=== PATIENT | male | born 1960 | race American Indian/Alaskan Native ===

== ENCOUNTER 2018-08-23 22:04 | Inpatient (IN) | payer MEDICARE ==
[2018-08-23] MEDS ORDERED: NACL 0.9% 1000 ML 1,000 ML IV ONE (22:28)
--- NOTE | 2018-08-23 22:28 | Emergency Department Report ---
Blank Doc - Documentation Documentation: Abd pain was seen Tuesday given Rx for pain medication but can't get it filled 2nd to pharmacy has to order. Hx/o pancreatitis. Nausea and vomiting. Hx/o Htn, OK, COPD, Pancreatitis. This initial assessment diagnostic orders/clinical plan/treatment (s) is/Are subject change based on patient's health status, clinical progression and re- assessment by fellow clinical providers in the ED. Further treatment and work-up at subsequent clinical providers discretion. Patient/guardians urged not to elope from s their condition may be serious if not clinically assessed and managed. Initial order include:
[2018-08-23] MEDS ORDERED: TYLENOL ONE (22:29)
[2018-08-23 22:57] LABS: Basophils % (Auto) 0.4 % (0.0-1.8); Eosinophils # (Auto) 0.1 K/mm3 (0.0-0.4); Eosinophils % (Auto) 1.4 % (0.0-4.3); Hematocrit 32.3 % (35.5-45.6); Hemoglobin 10.5 gm/dl (11.8-15.2); Lymphocytes # (Auto) 1.2 K/mm3 (1.2-5.4); Lymphocytes % (Auto) 17.8 % (13.4-35.0); Mean Corpuscular HGB Conc 33 % (32-34); Mean Corpuscular Volume 98 fl (84-94); Monocytes # (Auto) 0.5 K/mm3 (0.0-0.8); Monocytes % (Auto) 7.5 % (0.0-7.3); Platelet Count 235 K/mm3 (140-440); Red Blood Count 3.29 M/mm3 (3.65-5.03); Red Cell Distribution Width 15.7 % (13.2-15.2)
[2018-08-23] MEDS ORDERED: TYLENOL PO ONE (23:00)
[2018-08-23 23:24] LABS: Albumin 4.3 g/dL (3.9-5); Calcium 8.9 mg/dL (8.4-10.2)
--- NOTE | 2018-08-24 00:53 | Cat Scan Report ---
FINAL REPORT PROCEDURE: CT ABDOMEN PELVIS WO CON TECHNIQUE: Computerized axial tomography of the abdomen and pelvis was performed without intravenous contrast. This study is performed without intravascular contrast material and its sensitivity for ab dominal and pelvic pathology, including neoplasms, inflammation, abscess, free fluid, thrombosis, art erial dissection and infarction, is reduced compared with a contrast enhanced study. HISTORY: abd pain nausea COMPARISON: No prior studies are available for comparison. FINDINGS: Visualized lower thorax: No significant abnormality. Liver: Normal size and attenuation. Spleen: Normal size and attenuation. Gallbladder and biliary system: Normal. Pancreas: There is some streaking of the peripancreatic fat mid pancreas region. There is evidence in creased size in the mid pancreatic body with this region measuring 3.7 centimeters. No definitive mas s seen on this study. The findings could be related to inflammatory change. This area is not fully ev aluated on this study. Evaluation of the pancreas utilizing contrast enhanced CT in multiple phases w ould be appropriate.. Adrenals: Normal. Kidneys: Both kidneys are atrophic. No hydronephrosis. No renal stones or masses.. GI tract: The stomach is normal. The small bowel has a normal caliber without obstruction. The cecum, appendix and colon are normal. Mild diverticular change in the distal colon. No inflammatory process in this region.. Lymph nodes and mesentery: Normal. Vasculature: Moderate atherosclerosis of the aorta and all branching vessels. Bladder: Normal. Reproductive organs: Normal. Peritoneum: No free fluid. Musculoskeletal structures: No significant abnormality. Other: Small fat containing umbilical hernia. IMPRESSION: There is an increased size of mid pancreatic body measuring up to 3.7 centimeters. No definitive mass es seen on this study. There is some streaking of the peripancreatic fat. The findings may indicate a n acute inflammatory change such as pancreatitis. A mass in the mid pancreas body is not excluded on the basis of this study. Further evaluation of the pancreas using contrast enhanced CT in multiple ph ases would be appropriate. There is no evidence of intestinal or urinary tract obstruction. The appendix is normal. Moderate div erticulosis of distal colon..
[2018-08-24] MEDS ORDERED: ZOFRAN IV ONE (01:03)
[2018-08-24] MEDS ORDERED: SUBLIMAZE IV ONE (01:03)
--- NOTE | 2018-08-24 01:08 | Emergency Department Report ---
HPI - General Chief Complaint: Abdominal Pain Time Seen by Provider: 08/23/18 22:22 - HPI HPI: Room 5 The patient is a 57-year-old male presenting with a chief complaint of abdominal pain. Patient states one week she's had intermittent left lower quadrant abdominal pain associated with nausea vomiting. Patient states earlier in the week he was diagnosed with pancreatitis at the [place] ED for discharge home. Patient states he continues to have the pain and gives score of 9/10. Patient denies history of fever. Patient denies diarrhea Location: Abdomen Duration: [See above] Quality: Pain Severity: 9/10 Modifying factors: [see above] Context: [see above] Mode of transportation: [not driving] ED Past Medical Hx - Past Medical History Hx Hypertension: Yes Hx Heart Attack/AMI: Yes Hx Congestive Heart Failure: Yes Additional medical history: Pancreatitis - Surgical History Hx Coronary Stent: Yes - Family History Family history: no significant - Social History Smoking Status: Current Every Day Smoker (1/3 pack per day) Substance Use Type: None (denies illicit drug use), Alcohol (stopped drinking alcohol 5 days ago) ED Review of Systems ROS: Stated complaint: ABD PAIN Other details as noted in HPI Constitutional: denies: fever Eyes: denies: eye pain ENT: denies: throat pain Respiratory: no symptoms reported Cardiovascular: denies: chest pain Endocrine: no symptoms reported Gastrointestinal: abdominal pain, nausea, vomiting. denies: diarrhea Genitourinary: denies: testicular pain Musculoskeletal: denies: back pain Neurological: denies: headache Physical Exam - Physical Exam Vital Signs: Vital Signs 08/23/18 22:22 Temperature 98.4 F Pulse Rate 88 Respiratory 20 Rate Blood Pressure 147/102 O2 Sat by Pulse 99 Oximetry Physical Exam: GENERAL: The patient is well-developed well-nourished male on a stretcher appearing to be in mild discomfort. [] HEENT: Normocephalic. Atraumatic. Extraocular motions are intact. Patient has moist mucous membranes. NECK: Supple. Trachea midline CHEST/LUNGS: Clear to auscultation. There is no respiratory distress noted. HEART/CARDIOVASCULAR: Regular. There is no tachycardia. There is no gallop rub or murmur. ABDOMEN: Abdomen is soft, with discomfort to palpation in the left upper quadrant and left lower quadrant. Patient has normal bowel sounds. There is no abdominal distention. SKIN: There is no rash. There is no edema. There is no diaphoresis. NEURO: The patient is awake, alert, and oriented. The patient is cooperative. The patient has normal speech MUSCULOSKELETAL: There is no evidence of acute injury. ED Course Vital Signs 08/23/18 22:22 Temperature 98.4 F Pulse Rate 88 Respiratory 20 Rate Blood Pressure 147/102 O2 Sat by Pulse 99 Oximetry ED Medical Decision Making - Lab Data Result diagrams: 08/23/18 22:36 08/23/18 22:36 Laboratory Tests 08/23/18 08/23/18 22:36 22:36 WBC 7.0 RBC 3.29 L Hgb 10.5 L Hct 32.3 L MCV 98 H MCH 32 MCHC 33 RDW 15.7 H Plt Count 235 Lymph % (Auto) 17.8 [place] % (Auto) 7.5 H Eos % (Auto) 1.4 Baso % (Auto) 0.4 Lymph # 1.2 [place] # 0.5 Eos # 0.1 Baso # 0.0 Seg Neutrophils % 72.9 H Seg Neutrophils # 5.1 Sodium 137 Potassium 4.2 Chloride 92.5 L Carbon Dioxide 22 Anion Gap 27 BUN 50 H Creatinine 12.3 H Estimated GFR 4 BUN/Creatinine Ratio 4 Glucose 104 H Calcium 8.9 Total Bilirubin 0.60 AST 21 ALT 19 Alkaline Phosphatase 51 Total Protein 8.3 H Albumin 4.3 Albumin/Globulin Ratio 1.1 Lipase 606 H - Radiology Data Radiology results: report reviewed (CT abdomen and pelvis), image reviewed (CT abdomen and pelvis) [address] [address] Cat Scan Report Signed Patient: NIMISHA CARTER MR#: [id number] : 1960 Acct:[id number] Age/Sex: 57 / M ADM Date: 08/23/18 Loc: ED Attending Dr: Ordering Physician: DELANEY MANN Date of Service: 08/23/18 Procedure(s): CT abdomen pelvis wo con Accession Number(s): [id number] cc: DELANEY MANN FINAL REPORT PROCEDURE: CT ABDOMEN PELVIS WO CON TECHNIQUE: Computerized axial tomography of the abdomen and pelvis was performed without intravenous contrast. This study is performed without intravascular contrast material and its sensitivity for abdominal and pelvic pathology, including neoplasms, inflammation, abscess, free fluid, thrombosis, arterial dissection and infarction, is reduced compared with a contrast enhanced study. HISTORY: abd pain nausea COMPARISON: No prior studies are available for comparison. FINDINGS: Visualized lower thorax: No significant abnormality. Liver: Normal size and attenuation. Spleen: Normal size and attenuation. Gallbladder and biliary system: Normal. Pancreas: There is some streaking of the peripancreatic fat mid pancreas region. There is evidence increased size in the mid pancreatic body with this region measuring 3.7 centimeters. No definitive mass seen on this study. The findings could be related to inflammatory change. This area is not fully evaluated on this study. Evaluation of the pancreas utilizing contrast enhanced CT in multiple phases would be appropriate.. Adrenals: Normal. Kidneys: Both kidneys are atrophic. No hydronephrosis. No renal stones or masses.. GI tract: The stomach is normal. The small bowel has a normal caliber without obstruction. The cecum, appendix and colon are normal. Mild diverticular change in the distal colon. No inflammatory process in this region.. Lymph nodes and mesentery: Normal. Vasculature: Moderate atherosclerosis of the aorta and all branching vessels. Bladder: Normal. Reproductive organs: Normal. Peritoneum: No free fluid. Musculoskeletal structures: No significant abnormality. Other: Small fat containing umbilical hernia. IMPRESSION: There is an increased size of mid pancreatic body measuring up to 3.7 centimeters. No definitive masses seen on this study. There is some streaking of the peripancreatic fat. The findings may indicate an acute inflammatory change such as pancreatitis. A mass in the mid pancreas body is not excluded on the basis of this study. Further evaluation of the pancreas using contrast enhanced CT in multiple phases would be appropriate. There is no evidence of intestinal or urinary tract obstruction. The appendix is normal. Moderate diverticulosis of distal colon.. Transcribed By: [facility] Dictated By: TAMEKA TOLENTINO MD Electronically Authenticated By: ROSEANN TOLENTINO MD Signed Date/Time: 08/24/1852 DD/ TD/TT: 08/24/1851 - Differential Diagnosis acute pancreatitis, diverticulitis Critical care attestation.: If time is entered above; I have spent that time in minutes in the direct care of this critically ill patient, excluding procedure time. ED Disposition Clinical Impression: Acute pancreatitis, Acute abdominal pain, Nausea & vomiting Disposition: DC-09 OP ADMIT IP TO THIS HOSP Is pt being admited?: Yes Does the pt Need Aspirin: No Condition: Stable Referrals: DAVID OSORIO MD [Primary Care Provider] - 3-5 Days Time of Disposition: 01:08 (hospitalist paged (Dr Odalis Magallon))
[2018-08-24] MEDS ORDERED: ZOFRAN IV PRN (02:43)
[2018-08-24] MEDS ORDERED: TYLENOL PO PRN (02:43)
[2018-08-24] MEDS ORDERED: SODIUM CHLORIDE FLUSH SYRINGE 10 ML IV PRN (02:43)
--- NOTE | 2018-08-24 02:47 | History and Physical Report ---
History of Present Illness Date of examination: 08/24/18 History of present illness: 57-year-old man with a history of coronary artery disease, CHF, pancreatitis, alcohol abuse comes emergency room with complaints of left lower quadrant pain since last week. He was seen at [facility] but was not admitted. Pain is in the left upper quadrant, left lower quadrant, throbbing, constant, intensity 9/10, no radiation, relieved with pain medication. Admits to nausea and vomiting last night Review of systems Constitutional: no weight loss, chills, fever Ears, eyes, nose, mouth and throat: no nasal congestion, no nasal discharge, no sinus pressure, no vision change, no red eye. Neck: No neck pain or rigidity. Cardiovascular: no palpitations, chest pain Respiratory: no cough, shortness of breath Gastrointestinal: no hematochezia Genitourinary : no frequency , no hematuria Musculoskeletal: no joint swelling or muscle ache Integumentary: no rash, no pruritis Neurological: no parathesias, no focal weakness Endocrine: no cold or heat intolerance, no polyuria or polydipsia Hematologic/Lymphatic: no easy bruising, no easy bleeding, no gland swelling Allergic/Immunologic: no urticaria, no angioedema. PAST MEDICAL HISTORY:coronary artery disease, CHF, pancreatitis, alcohol abuse PAST SURGICAL HISTORY: None SOCIAL HISTORY drinks half pint every 3 days, no drugs, +tobacco FAMILY HISTORY: Hypertension Medications and Allergies Allergies Allergy/AdvReac Type Severity Reaction Status Date / Time No Known Allergies Allergy Unverified 08/23/18 22:06 Exam - Physical Exam Narrative exam: General Apperance: The patient lying in bed, breathing comfortable HEENT: Normocephalic, atraumatic. Pupils equally round and reactive to light, EOMI, no sclericterus or JVD or thyromegaly or nodule. , no carotid bruit, muco us membranes moist, no exudate or erythema Heart: S1-S2, regular is rhythm Lungs: Clear to auscultation bilaterally, breathing comfortable Abdomen: Positive bowel sounds, soft, tender left upper and lower quadrant, nondistended, no organomegaly Extremities: No edema cyanosis clubbing Skin: no rash, nodule, warm and dry Neuro: cranial nerves 2-12 intact, speech is fluent, motor/sensory intact - Constitutional Vitals: Temp Pulse Resp BP Pulse Ox 98 F 88 14 144/108 94 02/28/19 02:00 08/24/18 02:00 08/24/18 02:00 08/24/18 02:00 08/24/18 02:00 Results - Labs CBC & Chem 7: 08/23/18 22:36 08/23/18 22:36 Labs: Abnormal lab results 08/23/18 08/23/18 Range/Units 22:36 22:36 RBC 3.29 L (3.65-5.03) M/mm3 Hgb 10.5 L (11.8-15.2) gm/dl Hct 32.3 L (35.5-45.6) % MCV 98 H (84-94) fl RDW 15.7 H (13.2-15.2) % [place] % (Auto) 7.5 H (0.0-7.3) % Seg Neutrophils % 72.9 H (40.0-70.0) % Chloride 92.5 L (98-107) mmol/L BUN 50 H (9-20) mg/dL Creatinine 12.3 H (0.8-1.5) mg/dL Glucose 104 H (75-100) mg/dL Total Protein 8.3 H (6.3-8.2) g/dL Lipase 606 H (13-60) units/L - Imaging and Cardiology CT scan - abdomen: report reviewed CT scan - pelvis: report reviewed Assessment and Plan Assessment Acute pancreatitis secondary to alcohol Hypertension End-stage renal disease on dialysis Coronary artery disease CHF, stable Plan Admit to medicine Bowel rest, IV morphine, consult GI Continue appropriate outpatient medications DVT prophylaxis
[2018-08-24] MEDS: MORPHINE IV PRN ×3 (05:08→19:00)
[2018-08-24] MEDS: LOVENOX SUB-Q SCH (09:32)
[2018-08-24] MEDS: SODIUM CHLORIDE FLUSH SYRINGE 10 ML IV SCH ×2 (09:36→23:05)
--- NOTE | 2018-08-24 10:04 | Consultation ---
History of Present Illness - Reason for Consult Consult date: 08/24/18 - History of Present Illness The patient is a 57 YO male with history significant for HTN, CAD, CHF, h/o pancreatitis, Alcohol abuse and ESRD on hemodialysis (TTS) who presented to the ER with complaints of left sided abd pain for the past week. He was seen at [facility] ER and discharged home. Pain is in the left UQ, constant, throbbing, intensity 9/10, no radiation, aggravated by food and relieved with pain medication. Patient also admits to N and V. Denies fever, chills, rash, leg swelling, dizziness, SILVA, cp, sob, syncope or back pain. He has been on hemodialysis for little over 2 yrs and followed by [facility]. He was last dialyzed 2 days ago. Past History Past Medical History: anemia, dialysis, ESRD, hypertension, other (alcohol abuse) Medications and Allergies Allergies Allergy/AdvReac Type Severity Reaction Status Date / Time No Known Allergies Allergy Unverified 08/23/18 22:06 Home Medications Medication Instructions Recorded Confirmed Last Taken Type Aspirin 81 mg PO DAILY 08/24/18 08/24/18 Unknown History Atorvastatin Calcium 1 tab PO DAILY 08/24/18 08/24/18 Unknown History Auryxia (Nf) 2 tab PO AC 08/24/18 08/24/18 Unknown History Carvedilol 25 mg PO BID 08/24/18 08/24/18 Unknown History ISOSORBIDE MONOnitrate 60 mg PO DAILY 08/24/18 08/24/18 Unknown History Plavix 75 mg PO DAILY 08/24/18 08/24/18 Unknown History Sertraline 50 mg PO DAILY 08/24/18 08/24/18 Unknown History Warfarin 5 mg PO DAILY 08/24/18 08/24/18 Unknown History amLODIPine 10 mg PO DAILY 08/24/18 08/24/18 Unknown History hydrALAZINE 100 mg PO QID 08/24/18 08/24/18 Unknown History Active Meds: Active Medications Acetaminophen (Tylenol) 650 mg PO Q4H PRN PRN Reason: Pain MILD(1-3)/Fever >100.5/SILVA Enoxaparin Sodium (Lovenox) 30 mg SUB-Q QDAY ZARI Last Admin: 08/24/18 09:32 Dose: 30 mg Documented by: Morphine Sulfate (Morphine) 2 mg IV Q4H PRN PRN Reason: Pain, Moderate (4-6) Last Admin: 08/24/18 05:08 Dose: 2 mg Documented by: Ondansetron HCl (Zofran) 4 mg IV Q4H PRN PRN Reason: Nausea And Vomiting Sodium Chloride (Sodium Chloride Flush Syringe 10 Ml) 10 ml IV BID ZARI Last Admin: 08/24/18 09:36 Dose: 10 ml Documented by: Sodium Chloride (Sodium Chloride Flush Syringe 10 Ml) 10 ml IV PRN PRN PRN Reason: LINE FLUSH Review of Systems Constitutional: no weight loss, no weight gain, no fever, no chills, no anorexia, no weakness, no poor appetite Cardiovascular: high blood pressure, no chest pain, no orthopnea, no edema, no syncope, no lightheadedness, no shortness of breath, no leg edema Respiratory: no cough, no shortness of breath, no dyspnea on exertion, no sleep apnea, no home oxygen Gastrointestinal: abdominal pain, nausea, vomiting, no diarrhea, no hematemesis, no jaundice Genitourinary Male: no dysuria, no hematuria Musculoskeletal: no neck pain, no low back pain Neurological: no paralysis, no syncope, no headaches, no aphasia, no change in speech, no change in mentation, no confusion, no memory loss Exam - Vital Signs Vital signs: Vital Signs Temp Pulse Resp BP Pulse Ox 98.4 F 88 20 147/102 99 08/23/18 22:22 08/23/18 22:22 08/23/18 22:22 08/23/18 22:22 08/23/18 22:22 - General Appearance General appearance: well-developed, well-nourished, appears stated age, obese, other (not in distress) EENT: ATNC, PERRL, mucous membranes dry, hearing intact, vision intact Neck: Present: neck supple, trachea midline Respiratory: Clear to Ascultation Heart: regular, S1S2, no murmurs Gastrointestinal: Present: normoactive bowel sounds, tenderness (RUQ). Absent: distended Integumentary: no rash, warm and dry Neurologic: no focal deficit, no asterixis, alert and oriented x3 Musculoskeletal: Present: other (no edema, left FA AVF) Psychiatric: cooperative Results - Lab Results 08/25/18 05:51 08/25/18 05:51 Most recent lab results Calcium 8.9 mg/dL (8.4-10.2) 08/23/18 22:36 Assessment and Plan 1. ESRD: Continue hemodialysis three times a week, TTS schedule. HD today. 2. HTN: BP controlled. 3. Pancreatitis. 4. Alcohol abuse. 5. Anemia.
[2018-08-24] MEDS ORDERED: NACL 0.9% 100 ML IV PRN (11:25)
[2018-08-24] MEDS ORDERED: PROCRIT SUB-Q PRN (11:25)
--- NOTE | 2018-08-24 11:47 | Gastroenterology Consultation ---
<PENG WARNER - Last Filed: 08/24/18 13:32> History of Present Illness - Reason for Consult Consult date: 08/24/18 acute pancreatitis Requesting physician: SERAFIN SORIA - History of Present Illness Patient is a 57 y/o male with PMH of CAD, CHF, anemia, HTN, ESRD on HD, and ETOH abuse who presented to ED with c/o LUQ abd pain. Upon admission, lipase was found to be elevated and CT showed acute pancreatitis to which GI has been consu lted. This morning patient was resting in bed w/o acute distress. He reports an acute onset of constant non-radiating LUQ abd pain since last Tuesday. He was evaluated at [place] previously for his abd pain and was told it was pancreatitis 2/2 alcohol and he was d/c home with pain medication but he was unable to get medication filled. Admits to associated N/V which is now improving but denies fever, CP, SOB, jaundice, signs of bleeding, or LGI symptoms. Has had no alcohol since last week but was previously drinking heavily with a 1/2-1 pint of liquor a day on average. No hx of liver disease. Past History Past Medical History: anemia, CAD, dialysis, ESRD, heart failure, hypertension Past Surgical History: Other (AV graft, Coronary Stent) Social history: smoking, alcohol abuse Medications and Allergies Allergies Allergy/AdvReac Type Severity Reaction Status Date / Time No Known Allergies Allergy Unverified 08/23/18 22:06 Active Meds: Active Medications Acetaminophen (Tylenol) 650 mg PO Q4H PRN PRN Reason: Pain MILD(1-3)/Fever >100.5/SILVA Enoxaparin Sodium (Lovenox) 30 mg SUB-Q QDAY ZARI Last Admin: 08/24/18 09:32 Dose: 30 mg Documented by: Epoetin Davey (Procrit) 10,000 unit SUB-Q LISA PRN PRN Reason: hemodialysis Dextrose/Sodium Chloride (D5/0.45ns) 1,000 mls @ 42 mls/hr IV DIRECT ZARI Sodium Chloride (Nacl 0.9%) 100 mls @ 999 mls/hr IV LISA PRN PRN Reason: Hypotension Morphine Sulfate (Morphine) 2 mg IV Q4H PRN PRN Reason: Pain, Moderate (4-6) Last Admin: 08/24/18 10:27 Dose: 2 mg Documented by: Ondansetron HCl (Zofran) 4 mg IV Q4H PRN PRN Reason: Nausea And Vomiting Sodium Chloride (Sodium Chloride Flush Syringe 10 Ml) 10 ml IV BID ZARI Last Admin: 08/24/18 09:36 Dose: 10 ml Documented by: Sodium Chloride (Sodium Chloride Flush Syringe 10 Ml) 10 ml IV PRN PRN PRN Reason: LINE FLUSH medications reviewed/updated as required Review of Systems - Review of Systems All systems: negative Gastrointestinal: abdominal pain (LUQ pain), nausea, vomiting Exam - Constitutional Vital Signs: Temp Pulse Resp BP Pulse Ox 97.7 F 77 20 145/92 99 08/24/18 06:36 08/24/18 06:54 08/24/18 06:36 08/24/18 06:54 08/24/18 10:00 General appearance: no acute distress - EENT Eyes: PERRL, EOM intact ENT: hearing intact - Respiratory Respiratory: bilateral: CTA - Cardiovascular Rhythm: regular Heart Sounds: Present: S1 & S2 - Gastrointestinal General gastrointestinal: Present: soft, tender (LUQ), non-distended, normal bowel sounds - Neurologic Neurological: alert and oriented x3 - Labs CBC & Chem 7: 08/23/18 22:36 08/23/18 22:36 Lab Results: Laboratory Results - last 24 hr 08/23/18 08/23/18 22:36 22:36 WBC 7.0 RBC 3.29 L Hgb 10.5 L Hct 32.3 L MCV 98 H MCH 32 MCHC 33 RDW 15.7 H Plt Count 235 Lymph % (Auto) 17.8 [place] % (Auto) 7.5 H Eos % (Auto) 1.4 Baso % (Auto) 0.4 Lymph # 1.2 [place] # 0.5 Eos # 0.1 Baso # 0.0 Seg Neutrophils % 72.9 H Seg Neutrophils # 5.1 Sodium 137 Potassium 4.2 Chloride 92.5 L Carbon Dioxide 22 Anion Gap 27 BUN 50 H Creatinine 12.3 H Estimated GFR 4 BUN/Creatinine Ratio 4 Glucose 104 H Calcium 8.9 Total Bilirubin 0.60 AST 21 ALT 19 Alkaline Phosphatase 51 Total Protein 8.3 H Albumin 4.3 Albumin/Globulin Ratio 1.1 Lipase 606 H Assessment and Plan 1.acute pancreatitis 2.ETOH abuse 3.ESRD on HD 4.chronic anemia -afebrile -WBC WNL -H/H 10.5/32.3-no active signs of bleeding -LFTs WNL -Lipase 606 -abd CT showed increase size of mid pancreatic body (3.7cm; mass not excluded) and pancreatitis -abd u/s pending -etiology-most likely 2/2 alcohol -will order abd MRI for further evaluation of possible pancreatic mass -triglyceride level and CRP in am -Keep NPO for now -alcohol cessation discussed with patient-monitor for signs of withdrawal -continue to trend labs and supportive care (IVF, pain control, antiemetics, etc.) -will follow <MIRACLE LAYNE - Last Filed: 08/24/18 19:10> Medications and Allergies Active Meds: Active Medications Acetaminophen (Tylenol) 650 mg PO Q4H PRN PRN Reason: Pain MILD(1-3)/Fever >100.5/SILVA Enoxaparin Sodium (Lovenox) 30 mg SUB-Q QDAY [facility] Last Admin: 08/24/18 09:32 Dose: 30 mg Documented by: Epoetin Davey (Procrit) 10,000 unit SUB-Q LISA PRN PRN Reason: hemodialysis Hydrophilic Ointment (Vaseline Lip Therapy) 1 applic TP DIRECT PRN PRN Reason: Dry Lips Dextrose/Sodium Chloride (D5/0.45ns) 1,000 mls @ 42 mls/hr IV DIRECT ZARI Sodium Chloride (Nacl 0.9%) 100 mls @ 999 mls/hr IV LISA PRN PRN Reason: Hypotension Morphine Sulfate (Morphine) 2 mg IV Q4H PRN PRN Reason: Pain, Moderate (4-6) Last Admin: 08/24/18 19:00 Dose: 2 mg Documented by: Ondansetron HCl (Zofran) 4 mg IV Q4H PRN PRN Reason: Nausea And Vomiting Sodium Chloride (Sodium Chloride Flush Syringe 10 Ml) 10 ml IV BID [facility] Last Admin: 08/24/18 09:36 Dose: 10 ml Documented by: Sodium Chloride (Sodium Chloride Flush Syringe 10 Ml) 10 ml IV PRN PRN PRN Reason: LINE FLUSH Exam - Constitutional Vital Signs: Temp Pulse Resp BP Pulse Ox 97.8 F 90 22 126/90 99 08/24/18 17:53 08/24/18 17:53 08/24/18 17:53 08/24/18 17:53 08/24/18 17:53 - Labs CBC & Chem 7: 08/23/18 22:36 08/23/18 22:36 Lab Results: Laboratory Results - last 24 hr 08/23/18 08/23/18 22:36 22:36 WBC 7.0 RBC 3.29 L Hgb 10.5 L Hct 32.3 L MCV 98 H MCH 32 MCHC 33 RDW 15.7 H Plt Count 235 Lymph % (Auto) 17.8 [place] % (Auto) 7.5 H Eos % (Auto) 1.4 Baso % (Auto) 0.4 Lymph # 1.2 [place] # 0.5 Eos # 0.1 Baso # 0.0 Seg Neutrophils % 72.9 H Seg Neutrophils # 5.1 Sodium 137 Potassium 4.2 Chloride 92.5 L Carbon Dioxide 22 Anion Gap 27 BUN 50 H Creatinine 12.3 H Estimated GFR 4 BUN/Creatinine Ratio 4 Glucose 104 H Calcium 8.9 Total Bilirubin 0.60 AST 21 ALT 19 Alkaline Phosphatase 51 Total Protein 8.3 H Albumin 4.3 Albumin/Globulin Ratio 1.1 Lipase 606 H Assessment and Plan Pt seen and examined. Agree with note above. Pancreatitis likely from alcohol; RUQ US to r/o stones. Given CT read of possible mass in pancreas (unlikely) will obtain MRI to rule this out. Cont supportive care as above
--- NOTE | 2018-08-24 15:26 | Event Note ---
Date: 08/24/18 Patient with ESRD on dialysis, alcohol abuse presented with abd pain diagnosed with acute panreatitis. I have seen and examined him. Keep NPO, iv fluids. consult GI.
[2018-08-24] MEDS ORDERED: VASELINE LIP THERAPY TP PRN (19:08)
[2018-08-24] MEDS: D5/0.45NS 1,000 ML IV SCH (19:11)
[2018-08-24 20:08] LABS: Hepatitis B Surface Antigen Non-Reactive (Negative); Hepatitis C Virus Antibody Non-Reactive (NonReactive)
--- NOTE | 2018-08-24 23:15 | Ultrasound Report ---
PROCEDURE: US ABDOMEN COMPLETE TECHNIQUE: PROCEDURE: US ABDOMEN COMPLETE TECHNIQUE: Real-time sonography in multiple planes of the abdomen was performed with image documenta tion. HISTORY: abdominal pain, N/V, pancreatitis COMPARISONS: None . FINDINGS: Liver: Normal size and echotexture with no evidence of cystic or solid mass lesions. Gallbladder: Fluid filled. Naranjo are borderline in thickness. No gallstones, pericholecystic fluid, or sonographic Arriaga's sign. Intrahepatic bile ducts: Normal caliber . Extrahepatic bile ducts: Normal caliber. Pancreas: Visualized head and body demonstrate normal echotexture. Aorta: Visualized proximal portions appear normal. IVC: Visualized proximal portions appear normal. RIGHT kidney: Increased echotexture is noted without calculi or hydronephrosis. Length: 7.3 x 3.9 cm. LEFT kidney: Increased echotexture is noted without calculi or hydronephrosis. Length: 8.6 x 4.3 c m. Spleen: Normal size and echotexture. No focal lesions. Intraperitoneal fluid: None . Other: None . IMPRESSION: Echogenic and contracted kidneys consistent with chronic renal parenchymal disease.. Gallbladder naranjo are of borderline thickness. There are no definite signs of acute cholecystitis. This document is electronically signed by Mathew Spencer MD., August 24 2018 11:13:22 PM ET
[2018-08-25] MEDS: MORPHINE IV PRN ×3 (03:24→17:59)
[2018-08-25 06:05] LABS: Basophils % (Auto) 0.5 % (0.0-1.8); Eosinophils # (Auto) 0.1 K/mm3 (0.0-0.4); Eosinophils % (Auto) 2.1 % (0.0-4.3); Hematocrit 32.8 % (35.5-45.6); Lymphocytes # (Auto) 1.2 K/mm3 (1.2-5.4); Lymphocytes % (Auto) 24.5 % (13.4-35.0); Mean Corpuscular HGB Conc 33 % (32-34); Mean Corpuscular Volume 97 fl (84-94); Monocytes # (Auto) 0.4 K/mm3 (0.0-0.8); Monocytes % (Auto) 9.1 % (0.0-7.3); Platelet Count 188 K/mm3 (140-440); Red Cell Distribution Width 14.8 % (13.2-15.2)
[2018-08-25 06:16] LABS: INR 3.33 (0.87-1.13)
[2018-08-25 06:40] LABS: Albumin 4.1 g/dL (3.9-5); Calcium 8.8 mg/dL (8.4-10.2)
[2018-08-25 06:48] LABS: C-Reactive Protein 9.4 mg/dL (0.00-1.30)
[2018-08-25] MEDS ORDERED: AURYXIA PO SCH (07:30)
--- NOTE | 2018-08-25 09:47 | Progress Note ---
Assessment and Plan 1. ESRD: Continue hemodialysis three times a week, TTS schedule. 2. HTN: BP controlled. 3. Pancreatitis: Improving. 4. Alcohol abuse. 5. Anemia: 2/2 ESRD. Subjective Date of service: 08/25/18 Interval history: Patient is feeling better. Objective - Vital Signs Vital signs: Vital Signs - 12hr 08/24/18 22:26 Temperature 97.9 F Pulse Rate 74 Respiratory 20 Rate Blood Pressure 138/85 O2 Sat by Pulse 98 Oximetry - General Appearance General appearance: well-developed, well-nourished, appears stated age, obese, other (not in distress) EENT: ATNC, PERRL, hearing intact, vision intact Neck: supple Respiratory: Present: Clear to Ascultation Cardiology: regular, S1S2, no murmurs Gastrointestinal: normoactive bowel sounds, no tenderness, no distended, obese Integumentary: no rash, warm and dry Neurologic: no focal deficit, no asterixis, alert and oriented x3 Musculoskeletal: other (no edema) - Lab 08/25/18 05:51 08/25/18 05:51 Most recent lab results Calcium 8.8 mg/dL (8.4-10.2) 08/25/18 05:51 Medications & Allergies - Medications Allergies/Adverse Reactions: Allergies No Known Allergies Allergy (Unverified 08/23/18 22:06) Home Medications: Home Medications Medication Instructions Recorded Confirmed Last Taken Type Aspirin 81 mg PO DAILY 08/24/18 08/24/18 Unknown History Atorvastatin Calcium 1 tab PO DAILY 08/24/18 08/24/18 Unknown History Auryxia (Nf) 2 tab PO AC 08/24/18 08/24/18 Unknown History Carvedilol 25 mg PO BID 08/24/18 08/24/18 Unknown History ISOSORBIDE MONOnitrate 60 mg PO DAILY 08/24/18 08/24/18 Unknown History Plavix 75 mg PO DAILY 08/24/18 08/24/18 Unknown History Sertraline 50 mg PO DAILY 08/24/18 08/24/18 Unknown History Warfarin 5 mg PO DAILY 08/24/18 08/24/18 Unknown History amLODIPine 10 mg PO DAILY 08/24/18 08/24/18 Unknown History hydrALAZINE 100 mg PO QID 08/24/18 08/24/18 Unknown History Active Medications: Generic Name Dose Route Start Last Admin Trade Name Freq PRN Reason Stop Dose Admin Acetaminophen 650 mg 08/24/18 02:43 Tylenol PO Q4H PRN Pain MILD(1-3)/Fever >100.5/SILVA Aspirin 81 mg 08/25/18 10:00 Halfprin Ec PO QDAY [facility] Atorvastatin Calcium 40 mg 08/25/18 22:00 Lipitor PO QHS [facility] Carvedilol 25 mg 08/25/18 10:00 Coreg PO Q12HR [facility] Clopidogrel Bisulfate 75 mg 08/25/18 10:00 Plavix PO QDAY [facility] Enoxaparin Sodium 30 mg 08/24/18 10:00 08/24/18 09:32 Lovenox SUB-Q 30 mg QDAY [facility] Administration Epoetin Davey 10,000 unit 08/24/18 11:25 Procrit SUB-Q LISA PRN hemodialysis Hydrophilic Ointment 1 applic 08/24/18 19:08 Vaseline Lip Therapy TP DIRECT PRN Dry Lips Dextrose/Sodium Chloride 1,000 mls @ 42 mls/hr 08/24/18 11:00 08/24/18 19:11 D5/0.45ns IV 42 mls/hr DIRECT ZARI Administration Sodium Chloride 100 mls @ 999 mls/hr 08/24/18 11:25 Nacl 0.9% IV LISA PRN Hypotension Isosorbide Mononitrate 60 mg 08/25/18 10:00 Imdur PO QDAY [facility] Miscellaneous Medication 2 tab 08/25/18 07:30 Auryxia (Nf) PO AC [facility] Morphine Sulfate 2 mg 08/24/18 02:43 08/25/18 03:24 Morphine IV 2 mg Q4H PRN Administration Pain, Moderate (4-6) Ondansetron HCl 4 mg 08/24/18 02:43 Zofran IV Q4H PRN Nausea And Vomiting Sertraline HCl 50 mg 08/25/18 10:00 Zoloft PO QDAY [facility] Sodium Chloride 10 ml 08/24/18 10:00 08/24/18 23:05 Sodium Chloride Flush Syringe 10 Ml IV 10 ml BID ZARI Administration Sodium Chloride 10 ml 08/24/18 02:43 Sodium Chloride Flush Syringe 10 Ml IV PRN PRN LINE FLUSH
[2018-08-25] MEDS ORDERED: SERTRALINE 50 MG PO SCH (10:00)
[2018-08-25] MEDS ORDERED: NON-FORMULARY (Plavix 75 MG) PO SCH (10:00)
[2018-08-25] MEDS ORDERED: ATORVASTATIN CALCIUM PO SCH (10:00)
[2018-08-25] MEDS ORDERED: NON-FORMULARY (Carvedilol 25 MG) PO SCH (10:00)
[2018-08-25] MEDS ORDERED: NON-FORMULARY (Aspirin 81 MG) PO SCH (10:00)
[2018-08-25] MEDS ORDERED: NON-FORMULARY (Isosorbide Mononitrate 60 MG) PO SCH (10:00)
--- NOTE | 2018-08-25 10:02 | Gastroenterology Progress Note ---
<PENG WARNER - Last Filed: 08/25/18 10:05> Assessment and Plan 1.acute pancreatitis 2.ETOH abuse 3.ESRD on HD 4.chronic anemia -afebrile -WBC WNL -H/H 11.0/32.8 (trending up)-no active signs of bleeding -LFTs WNL -Lipase 269-trending down -CRP 9.40 -triglyceride level 118 -abd CT showed increase size of mid pancreatic body (3.7cm; mass not excluded) and pancreatitis -abd u/s-showed gallbladder naranjo with borderline thickness but no gallstones or signs of acute cholecystitis -etiology-most likely 2/2 alcohol -abd MRI results pending to r/o pancreatic mass -clinically, patient reports feeling better with abd pain improved and no N/V. -okay to start on clears -continue to trend labs and supportive care (IVF, pain control, antiemetics, etc.) -alcohol cessation discussed with patient-monitor for signs of withdrawal -will follow Subjective Date of service: 08/25/18 Principal diagnosis: pancreatitis Interval history: Patient resting in bed this am w/o acute distress. Reports feeling better with abd pain improved and no N/v. Objective - Constitutional Vitals: Temp Pulse Resp BP Pulse Ox 97.9 F 74 20 138/85 98 08/24/18 22:26 08/24/18 22:26 08/24/18 22:26 08/24/18 22:26 08/24/18 22:26 General appearance: no acute distress - Respiratory Respiratory: bilateral: CTA - Cardiovascular Rhythm: regular Heart Sounds: Present: S1 & S2 - Gastrointestinal General gastrointestinal: Present: soft, non-tender, non-distended, normal bowel sounds - Neurologic Neurological: alert and oriented x3 - Labs CBC & Chem 7: 08/25/18 05:51 08/25/18 05:51 Labs: Laboratory Results - last 24 hr 08/24/18 08/24/18 08/25/18 18:49 23:44 05:45 WBC RBC Hgb Hct MCV MCH MCHC RDW Plt Count Lymph % (Auto) [place] % (Auto) Eos % (Auto) Baso % (Auto) Lymph # [place] # Eos # Baso # Seg Neutrophils % Seg Neutrophils # PT INR Sodium Potassium Chloride Carbon Dioxide Anion Gap BUN Creatinine Estimated GFR BUN/Creatinine Ratio Glucose POC Glucose 78 75 Calcium Total Bilirubin AST ALT Alkaline Phosphatase C-Reactive Protein Total Protein Albumin Albumin/Globulin Ratio Triglycerides Lipase Hepatitis A IgM Ab Non-reactive Hep Bs Antigen Non-reactive Hep B Core IgM Ab Non-reactive Hepatitis C Antibody Non-reactive 08/25/18 08/25/18 08/25/18 05:51 05:51 05:51 WBC 4.8 RBC 3.40 L Hgb 11.0 L Hct 32.8 L MCV 97 H MCH 32 MCHC 33 RDW 14.8 Plt Count 188 Lymph % (Auto) 24.5 [place] % (Auto) 9.1 H Eos % (Auto) 2.1 Baso % (Auto) 0.5 Lymph # 1.2 [place] # 0.4 Eos # 0.1 Baso # 0.0 Seg Neutrophils % 63.8 Seg Neutrophils # 3.1 PT 36.1 H INR 3.33 H Sodium 139 Potassium 4.2 Chloride 95.5 L Carbon Dioxide 24 Anion Gap 24 BUN 40 H Creatinine 10.6 H Estimated GFR 6 BUN/Creatinine Ratio 4 Glucose 85 POC Glucose Calcium 8.8 Total Bilirubin 0.80 AST 13 ALT 14 Alkaline Phosphatase 50 C-Reactive Protein 9.40 H Total Protein 8.0 Albumin 4.1 Albumin/Globulin Ratio 1.1 Triglycerides 118 Lipase 269 H Hepatitis A IgM Ab Hep Bs Antigen Hep B Core IgM Ab Hepatitis C Antibody 08/25/18 08:18 WBC RBC Hgb Hct MCV MCH MCHC RDW Plt Count Lymph % (Auto) [place] % (Auto) Eos % (Auto) Baso % (Auto) Lymph # [place] # Eos # Baso # Seg Neutrophils % Seg Neutrophils # PT INR Sodium Potassium Chloride Carbon Dioxide Anion Gap BUN Creatinine Estimated GFR BUN/Creatinine Ratio Glucose POC Glucose 74 Calcium Total Bilirubin AST ALT Alkaline Phosphatase C-Reactive Protein Total Protein Albumin Albumin/Globulin Ratio Triglycerides Lipase Hepatitis A IgM Ab Hep Bs Antigen Hep B Core IgM Ab Hepatitis C Antibody <MIRACLE LAYNE - Last Filed: 08/25/18 11:19> Assessment and Plan Pt seen and examined. Agree with note above. clinically doing much better. will d/c IVF's (ESRD), start clears and advance as tolerated. MRI pending. Objective - Constitutional Vitals: Temp Pulse Resp BP Pulse Ox 97.9 F 82 20 112/73 98 08/24/18 22:26 08/25/18 10:54 08/24/18 22:26 08/25/18 10:54 08/24/18 22:26 - Labs CBC & Chem 7: 08/25/18 05:51 08/25/18 05:51 Labs: Laboratory Results - last 24 hr 08/24/18 08/24/18 08/25/18 18:49 23:44 05:45 WBC RBC Hgb Hct MCV MCH MCHC RDW Plt Count Lymph % (Auto) [place] % (Auto) Eos % (Auto) Baso % (Auto) Lymph # [place] # Eos # Baso # Seg Neutrophils % Seg Neutrophils # PT INR Sodium Potassium Chloride Carbon Dioxide Anion Gap BUN Creatinine Estimated GFR BUN/Creatinine Ratio Glucose POC Glucose 78 75 Calcium Total Bilirubin AST ALT Alkaline Phosphatase C-Reactive Protein Total Protein Albumin Albumin/Globulin Ratio Triglycerides Lipase Hepatitis A IgM Ab Non-reactive Hep Bs Antigen Non-reactive Hep B Core IgM Ab Non-reactive Hepatitis C Antibody Non-reactive 08/25/18 08/25/18 08/25/18 05:51 05:51 05:51 WBC 4.8 RBC 3.40 L Hgb 11.0 L Hct 32.8 L MCV 97 H MCH 32 MCHC 33 RDW 14.8 Plt Count 188 Lymph % (Auto) 24.5 [place] % (Auto) 9.1 H Eos % (Auto) 2.1 Baso % (Auto) 0.5 Lymph # 1.2 [place] # 0.4 Eos # 0.1 Baso # 0.0 Seg Neutrophils % 63.8 Seg Neutrophils # 3.1 PT 36.1 H INR 3.33 H Sodium 139 Potassium 4.2 Chloride 95.5 L Carbon Dioxide 24 Anion Gap 24 BUN 40 H Creatinine 10.6 H Estimated GFR 6 BUN/Creatinine Ratio 4 Glucose 85 POC Glucose Calcium 8.8 Total Bilirubin 0.80 AST 13 ALT 14 Alkaline Phosphatase 50 C-Reactive Protein 9.40 H Total Protein 8.0 Albumin 4.1 Albumin/Globulin Ratio 1.1 Triglycerides 118 Lipase 269 H Hepatitis A IgM Ab Hep Bs Antigen Hep B Core IgM Ab Hepatitis C Antibody 08/25/18 08:18 WBC RBC Hgb Hct MCV MCH MCHC RDW Plt Count Lymph % (Auto) [place] % (Auto) Eos % (Auto) Baso % (Auto) Lymph # [place] # Eos # Baso # Seg Neutrophils % Seg Neutrophils # PT INR Sodium Potassium Chloride Carbon Dioxide Anion Gap BUN Creatinine Estimated GFR BUN/Creatinine Ratio Glucose POC Glucose 74 Calcium Total Bilirubin AST ALT Alkaline Phosphatase C-Reactive Protein Total Protein Albumin Albumin/Globulin Ratio Triglycerides Lipase Hepatitis A IgM Ab Hep Bs Antigen Hep B Core IgM Ab Hepatitis C Antibody
[2018-08-25] MEDS: COREG PO SCH ×2 (10:48→22:17)
[2018-08-25] MEDS: ZOLOFT PO SCH (10:49)
[2018-08-25] MEDS: LOVENOX SUB-Q SCH (10:49)
[2018-08-25] MEDS: PLAVIX PO SCH (10:49)
[2018-08-25] MEDS: HALFPRIN EC PO SCH (10:49)
[2018-08-25] MEDS: IMDUR PO SCH (10:54)
[2018-08-25] MEDS: SODIUM CHLORIDE FLUSH SYRINGE 10 ML IV SCH ×2 (10:55→22:18)
--- NOTE | 2018-08-25 12:04 | Progress Note ---
History Interval history: Less abd pain Hospitalist Physical - Constitutional Vitals: Temp Pulse Resp BP Pulse Ox 97.9 F 82 20 112/73 98 08/24/18 22:26 08/25/18 10:54 08/24/18 22:26 08/25/18 10:54 08/24/18 22:26 Results - Labs CBC & Chem 7: 08/26/18 05:16 08/26/18 05:16 Labs: Laboratory Last Values WBC 4.8 K/mm3 (4.5-11.0) 08/25/18 05:51 RBC 3.40 M/mm3 (3.65-5.03) L 08/25/18 05:51 Hgb 11.0 gm/dl (11.8-15.2) L 08/25/18 05:51 Hct 32.8 % (35.5-45.6) L 08/25/18 05:51 MCV 97 fl (84-94) H 08/25/18 05:51 MCH 32 pg (28-32) 08/25/18 05:51 MCHC 33 % (32-34) 08/25/18 05:51 RDW 14.8 % (13.2-15.2) 08/25/18 05:51 Plt Count 188 K/mm3 (140-440) 08/25/18 05:51 Lymph % (Auto) 24.5 % (13.4-35.0) 08/25/18 05:51 [place] % (Auto) 9.1 % (0.0-7.3) H 08/25/18 05:51 Eos % (Auto) 2.1 % (0.0-4.3) 08/25/18 05:51 Baso % (Auto) 0.5 % (0.0-1.8) 08/25/18 05:51 Lymph # 1.2 K/mm3 (1.2-5.4) 08/25/18 05:51 [place] # 0.4 K/mm3 (0.0-0.8) 08/25/18 05:51 Eos # 0.1 K/mm3 (0.0-0.4) 08/25/18 05:51 Baso # 0.0 K/mm3 (0.0-0.1) 08/25/18 05:51 Seg Neutrophils % 63.8 % (40.0-70.0) 08/25/18 05:51 Seg Neutrophils # 3.1 K/mm3 (1.8-7.7) 08/25/18 05:51 PT 36.1 Sec. (12.2-14.9) H 08/25/18 05:51 INR 3.33 (0.87-1.13) H 08/25/18 05:51 Sodium 139 mmol/L (137-145) 08/25/18 05:51 Potassium 4.2 mmol/L (3.6-5.0) 08/25/18 05:51 Chloride 95.5 mmol/L (98-107) L 08/25/18 05:51 Carbon Dioxide 24 mmol/L (22-30) 08/25/18 05:51 Anion Gap 24 mmol/L 08/25/18 05:51 BUN 40 mg/dL (9-20) H 08/25/18 05:51 Creatinine 10.6 mg/dL (0.8-1.5) H 08/25/18 05:51 Estimated GFR 6 ml/min 08/25/18 05:51 BUN/Creatinine Ratio 4 % 08/25/18 05:51 Glucose 85 mg/dL (75-100) 08/25/18 05:51 POC Glucose 74 (70-105) 08/25/18 08:18 Calcium 8.8 mg/dL (8.4-10.2) 08/25/18 05:51 Total Bilirubin 0.80 mg/dL (0.1-1.2) 08/25/18 05:51 AST 13 units/L (5-40) 08/25/18 05:51 ALT 14 units/L (7-56) 08/25/18 05:51 Alkaline Phosphatase 50 units/L (35-129) 08/25/18 05:51 C-Reactive Protein 9.40 mg/dL (0.00-1.30) H 08/25/18 05:51 Total Protein 8.0 g/dL (6.3-8.2) 08/25/18 05:51 Albumin 4.1 g/dL (3.9-5) 08/25/18 05:51 Albumin/Globulin Ratio 1.1 % 08/25/18 05:51 Triglycerides 118 mg/dL (2-149) 08/25/18 05:51 Lipase 269 units/L (13-60) H 08/25/18 05:51 Hepatitis A IgM Ab Non-reactive (NonReactive) 08/24/18 18:49 Hep Bs Antigen Non-reactive (Negative) 08/24/18 18:49 Hep B Core IgM Ab Non-reactive (NonReactive) 08/24/18 18:49 Hepatitis C Antibody Non-reactive (NonReactive) 08/24/18 18:49
[2018-08-25] MEDS: D5/0.45NS 1,000 ML IV SCH (14:32)
[2018-08-25] MEDS ORDERED: NORCO 5/325 PO PRN (18:41)
--- NOTE | 2018-08-25 19:18 | Magnetic Resonance Report ---
PROCEDURE: MR ABDOMEN WO CON HISTORY: pancreatitis, possible pancreatic mass FINDINGS: MRI of the abdomen was performed using axial T1-weighted gradient echo images in and out of phase, co harmeet fat saturated T1-weighted images, axial and coronal T2*gradient echo images, axial fat saturate d T1-weighted images, and coronal heavily T2-weighted MRCP images. Correlation is made to the ultraso und examination of earlier in the day. Hepatic signal intensity increases on out of phase images relative to in phase images which is suspic ious for hepatic iron deposition. No suspect focal hepatic lesion is seen. The spleen is normal in size mildly enlarged at 12.7 x 4.8 x 8.1 cm. There is stranding around the pancreatic tail, consistent with pancreatitis. There is a high T2*signa l intensity, high fat saturated T1 gradient echo image signal intensity structure in the pancreatic t ail, 2.4 x 1.5, likely pseudocyst. The pancreatic duct is normal in size. The examination is limited by lack of postcontrast imaging. No evidence of gallstones or acute cholecystitis is seen. The common duct is normal in size. Both kidneys appear small, and there are bilateral renal cysts. No adrenal lesion is identified. The abdominal aorta is normal in size. IMPRESSION: Stranding around pancreatic tail, consistent with acute pancreatitis with suspected pancreatic pseudo cyst Atrophic kidneys Possible hepatic iron deposition. This document is electronically signed by Jonathon Helms MD., August 24 2018 09:37:55 PM ET
[2018-08-26 05:58] LABS: Basophils % (Auto) 0.7 % (0.0-1.8); Eosinophils # (Auto) 0.1 K/mm3 (0.0-0.4); Eosinophils % (Auto) 2.1 % (0.0-4.3); Hematocrit 31.2 % (35.5-45.6); Hemoglobin 10.4 gm/dl (11.8-15.2); Lymphocytes # (Auto) 1.2 K/mm3 (1.2-5.4); Lymphocytes % (Auto) 26.9 % (13.4-35.0); Mean Corpuscular HGB Conc 33 % (32-34); Mean Corpuscular Volume 95 fl (84-94); Monocytes # (Auto) 0.4 K/mm3 (0.0-0.8); Monocytes % (Auto) 9.2 % (0.0-7.3); Platelet Count 181 K/mm3 (140-440); Red Blood Count 3.28 M/mm3 (3.65-5.03); Red Cell Distribution Width 14.7 % (13.2-15.2)
--- NOTE | 2018-08-26 06:06 | Progress Note ---
Assessment and Plan 1. ESRD: Continue hemodialysis three times a week, TTS schedule. 2. HTN: BP controlled. 3. Pancreatitis: Improving. 4. Alcohol abuse. 5. Anemia: 2/2 ESRD. Epogen with HD. Subjective Date of service: 08/26/18 Principal diagnosis: pancreatitis Interval history: Patient is feeling better. Objective - Vital Signs Vital signs: Vital Signs - 12hr 08/25/18 22:14 Temperature 97.8 F Pulse Rate 78 Respiratory 18 Rate Blood Pressure 127/92 O2 Sat by Pulse 96 Oximetry - General Appearance General appearance: well-developed, well-nourished, appears stated age, obese, other (not in distress) EENT: ATNC, PERRL, mucous membranes moist, hearing intact, vision intact Neck: supple Respiratory: Present: Clear to Ascultation Cardiology: regular, S1S2, no murmurs Gastrointestinal: normoactive bowel sounds, no tenderness, no distended, obese Integumentary: no rash, warm and dry Neurologic: no focal deficit, no asterixis, alert and oriented x3 Musculoskeletal: other (no edema, left FA AVF) - Lab 08/26/18 05:16 08/26/18 05:16 Most recent lab results Calcium 8.8 mg/dL (8.4-10.2) 08/25/18 05:51 Medications & Allergies - Medications Allergies/Adverse Reactions: Allergies No Known Allergies Allergy (Unverified 08/23/18 22:06) Home Medications: Home Medications Medication Instructions Recorded Confirmed Last Taken Type Aspirin 81 mg PO DAILY 08/24/18 08/24/18 Unknown History Atorvastatin Calcium 1 tab PO DAILY 08/24/18 08/24/18 Unknown History Auryxia (Nf) 2 tab PO AC 08/24/18 08/24/18 Unknown History Carvedilol 25 mg PO BID 08/24/18 08/24/18 Unknown History ISOSORBIDE MONOnitrate 60 mg PO DAILY 08/24/18 08/24/18 Unknown History Plavix 75 mg PO DAILY 08/24/18 08/24/18 Unknown History Sertraline 50 mg PO DAILY 08/24/18 08/24/18 Unknown History Warfarin 5 mg PO DAILY 08/24/18 08/24/18 Unknown History amLODIPine 10 mg PO DAILY 08/24/18 08/24/18 Unknown History hydrALAZINE 100 mg PO QID 08/24/18 08/24/18 Unknown History Active Medications: Generic Name Dose Route Start Last Admin Trade Name Freq PRN Reason Stop Dose Admin Acetaminophen 650 mg 08/24/18 02:43 Tylenol PO Q4H PRN Pain MILD(1-3)/Fever >100.5/SILVA Acetaminophen/Hydrocodone Bitart 1 each 08/25/18 18:41 [place] 5/325 PO Q6H PRN Pain, Moderate (4-6) Aspirin 81 mg 08/25/18 10:00 08/25/18 10:49 Halfprin Ec PO 81 mg QDAY ZARI Administration Atorvastatin Calcium 40 mg 08/25/18 22:00 08/25/18 22:17 Lipitor PO 40 mg QHS ZARI Administration Carvedilol 25 mg 08/25/18 10:00 08/25/18 22:17 Coreg PO 25 mg Q12HR ZARI Administration Clopidogrel Bisulfate 75 mg 08/25/18 10:00 08/25/18 10:49 Plavix PO 75 mg QDAY ZARI Administration Enoxaparin Sodium 30 mg 08/24/18 10:00 08/25/18 10:49 Lovenox SUB-Q 30 mg QDAY ZARI Administration Epoetin Davey 10,000 unit 08/24/18 11:25 Procrit SUB-Q LISA PRN hemodialysis Hydrophilic Ointment 1 applic 08/24/18 19:08 Vaseline Lip Therapy TP DIRECT PRN Dry Lips Dextrose/Sodium Chloride 1,000 mls @ 42 mls/hr 08/24/18 11:00 08/25/18 14:32 D5/0.45ns IV 42 mls/hr DIRECT ZARI Administration Sodium Chloride 100 mls @ 999 mls/hr 08/24/18 11:25 Nacl 0.9% IV LISA PRN Hypotension Isosorbide Mononitrate 60 mg 08/25/18 10:00 08/25/18 10:54 Imdur PO Not Given QDAY [facility] Miscellaneous Medication 2 tab 08/25/18 07:30 Auryxia (Nf) PO AC ZARI Ondansetron HCl 4 mg 08/24/18 02:43 Zofran IV Q4H PRN Nausea And Vomiting Sertraline HCl 50 mg 08/25/18 10:00 08/25/18 10:49 Zoloft PO 50 mg QDAY ZARI Administration Sodium Chloride 10 ml 08/24/18 10:00 08/25/18 22:18 Sodium Chloride Flush Syringe 10 Ml IV 10 ml BID ZARI Administration Sodium Chloride 10 ml 08/24/18 02:43 Sodium Chloride Flush Syringe 10 Ml IV PRN PRN LINE FLUSH
[2018-08-26 06:38] LABS: INR 3.45 (0.87-1.13)
[2018-08-26 06:45] LABS: Albumin 4.1 g/dL (3.9-5); C-Reactive Protein 9.6 mg/dL (0.00-1.30)
[2018-08-26] MEDS: ZOLOFT PO SCH (10:04)
[2018-08-26] MEDS: PLAVIX PO SCH (10:04)
[2018-08-26] MEDS: LOVENOX SUB-Q SCH (10:04)
[2018-08-26] MEDS: HALFPRIN EC PO SCH (10:05)
--- NOTE | 2018-08-26 10:05 | Gastroenterology Progress Note ---
Assessment and Plan 1. Acute pancreatitis - likely from alcohol; clinically doing much better. okay to d/c from gi stand point. counseled on alcohol cessation. f/u in GI clinic in 2-3 weeks. will plan to repeat imaging (likely MRI) to assess for resolution of pancreas findings Will sign off, please call as needed or with questions. Subjective Date of service: 08/26/18 Principal diagnosis: pancreatitis Interval history: pt seen and examined. abd pain resolved and tolerating po Objective - Constitutional Vitals: Temp Pulse Resp BP Pulse Ox 98.2 F 70 18 115/75 97 08/26/18 06:06 08/26/18 06:06 08/26/18 06:06 08/26/18 06:06 08/26/18 06:06 General appearance: no acute distress - Respiratory Respiratory effort: normal Respiratory: bilateral: CTA - Cardiovascular Rhythm: regular Heart Sounds: Present: S1 & S2 - Gastrointestinal General gastrointestinal: Present: soft, non-tender, non-distended - Neurologic Neurological: alert and oriented x3 - Psychiatric Psychiatric: appropriate mood/affect - Labs CBC & Chem 7: 08/26/18 05:16 08/26/18 05:16 Labs: Laboratory Results - last 24 hr 08/25/18 08/25/18 08/25/18 12:33 16:59 23:59 WBC RBC Hgb Hct MCV MCH MCHC RDW Plt Count Lymph % (Auto) [place] % (Auto) Eos % (Auto) Baso % (Auto) Lymph # [place] # Eos # Baso # Seg Neutrophils % Seg Neutrophils # PT INR Sodium Potassium Chloride Carbon Dioxide Anion Gap BUN Creatinine Estimated GFR BUN/Creatinine Ratio Glucose POC Glucose 97 85 96 Calcium Total Bilirubin AST ALT Alkaline Phosphatase C-Reactive Protein Total Protein Albumin Albumin/Globulin Ratio Lipase 08/26/18 08/26/18 08/26/18 05:16 05:16 05:16 WBC 4.6 RBC 3.28 L Hgb 10.4 L Hct 31.2 L MCV 95 H MCH 32 MCHC 33 RDW 14.7 Plt Count 181 Lymph % (Auto) 26.9 [place] % (Auto) 9.2 H Eos % (Auto) 2.1 Baso % (Auto) 0.7 Lymph # 1.2 [place] # 0.4 Eos # 0.1 Baso # 0.0 Seg Neutrophils % 61.1 Seg Neutrophils # 2.8 PT 37.2 H INR 3.45 H Sodium 137 Potassium 4.3 Chloride 92.7 L Carbon Dioxide 24 Anion Gap 25 BUN 52 H Creatinine 13.0 H Estimated GFR 5 BUN/Creatinine Ratio 4 Glucose 91 POC Glucose Calcium 9.0 Total Bilirubin 0.60 AST 10 ALT 12 Alkaline Phosphatase 51 C-Reactive Protein 9.60 H Total Protein 8.2 Albumin 4.1 Albumin/Globulin Ratio 1.0 Lipase 200 H 08/26/18 06:11 WBC RBC Hgb Hct MCV MCH MCHC RDW Plt Count Lymph % (Auto) [place] % (Auto) Eos % (Auto) Baso % (Auto) Lymph # [place] # Eos # Baso # Seg Neutrophils % Seg Neutrophils # PT INR Sodium Potassium Chloride Carbon Dioxide Anion Gap BUN Creatinine Estimated GFR BUN/Creatinine Ratio Glucose POC Glucose 91 Calcium Total Bilirubin AST ALT Alkaline Phosphatase C-Reactive Protein Total Protein Albumin Albumin/Globulin Ratio Lipase
[2018-08-26] MEDS: COREG PO SCH (10:14)
[2018-08-26] MEDS: IMDUR PO SCH (10:15)
[2018-08-26] MEDS: SODIUM CHLORIDE FLUSH SYRINGE 10 ML IV SCH (10:18)
--- NOTE | 2018-08-26 12:53 | Discharge Summary ---
Providers - Providers Date of Admission: 08/24/18 02:43 Date of discharge: 08/26/18 Attending physician: SERAFIN SORIA 08/24/18 06:17 Consult to Physician [CONS] Routine Comment: Consulting Provider: LYDIA ZARATE Physician Instructions: Reason For Exam: hd 08/24/18 08:37 Consult to Physician [CONS] Routine Comment: Consulting Provider: NENA FRAZIER Physician Instructions: Reason For Exam: acute pancreatitis Primary care physician: DAVID OSORIO Hospitalization Condition: Fair Hospital course: patient is 4 yo with a history of coronary artery disease, CHF, pancreatitis, ESRD on dialysis, alcohol abuse comes emergency room with complaints of left lower quadrant pain for 1 week, nausea, vomiting. He was seen and evaluated him and his department CT of the abdomen showed acute pancreatitis and possible pancreatic mass. He was made nothing by mouth and started on IV fluids, narcotics and admitted. Patient evaluated by GI physician. Mild abdomen was done suggestive of pancreatic pseudocyst.. He improved with conservative management. ESRD and dialysis was managed by informatics educator. With management, abdominal pain subsided, nausea vomiting subsided patient was discharged on 08/26/2018 Total time spent on discharge, 32 mins Disposition: DC-01 TO HOME OR SELFCARE - Discharge Diagnoses (1) ESRD on hemodialysis Status: Acute (2) Acute pancreatitis Status: Acute (3) Nausea & vomiting Status: Acute (4) HTN (hypertension) Status: Acute (5) Alcohol abuse Status: Acute Core Measure Documentation - Palliative Care Palliative Care/ Comfort Measures: Not Applicable - Core Measures Any of the following diagnoses?: none Exam - Constitutional Vitals: Temp Pulse Resp BP Pulse Ox 98.2 F 72 18 115/75 97 08/26/18 06:06 08/26/18 10:15 08/26/18 06:06 08/26/18 06:06 08/26/18 06:06 Plan Activity: no restrictions Diet: low fat, low cholesterol, low salt, renal Additional Instructions: 1.Follow up with PCP in 1 week. 2.Continue routine hemodialysis as scheduled. 3.Check INR on at Dialysis Center to be followed by PCP. 4.Resume Coumadin on Tuesday08/28/18. 5.Avoid Alcohol Follow up with: DAVID OSORIO MD [Primary Care Provider] - 7 Days Prescriptions: Promethazine [Phenergan TAB] 25 mg PO Q6HR PRN #20 tab PRN Reason: Nausea
[2018-08-26] MEDS ORDERED: NACL 0.9 (PRIMING MACHINE ONLY DIALYSIS) MC ONE (13:23)
[2018-08-26 15:01] VITALS: BP 109/67
== END 2018-08-26 15:30 | disposition home or self-care (01) | DRG 438 ==
LOC: ED 22:04 → 3A 08-24 02:43
PROVIDERS: ADMIT Internal Medicine; ATTEND Internal Medicine
PROC: 5A1D70Z Performance of Urinary Filtration, Intermittent, Less than 6 Hours Per Day (ICD-10-PCS; principal; 2018-08-24)
PROC: 5A1D70Z Performance of Urinary Filtration, Intermittent, Less than 6 Hours Per Day (ICD-10-PCS; 2018-08-26)
DX: K85.20 Alcohol induced acute pancreatitis without necrosis or infection (principal); N18.6 End stage renal disease; I13.2 Hypertensive heart and chronic kidney disease with heart failure and with stage 5 chronic kidney disease, or end stage renal disease; I25.10 Atherosclerotic heart disease of native coronary artery without angina pectoris; F10.10 Alcohol abuse, uncomplicated; I50.9 Heart failure, unspecified; F17.210 Nicotine dependence, cigarettes, uncomplicated; D63.1 Anemia in chronic kidney disease; Y90.0 Blood alcohol level of less than 20 mg/100 ml; Z99.2 Dependence on renal dialysis; Z82.49 Family history of ischemic heart disease and other diseases of the circulatory system; Z79.82 Long term (current) use of aspirin; Z79.899 Other long term (current) drug therapy; Z95.5 Presence of coronary angioplasty implant and graft; I25.2 Old myocardial infarction; Z71.41 Alcohol abuse counseling and surveillance of alcoholic; Z71.6 Tobacco abuse counseling
CPT/HCPCS: 36415; 74176; 74181; 76700; 80053; 80074; 82962; 83690; 84478; 85025; 85610; 86140; 96374; 96375; 99406; G0378; A9270-GY; J0885; J1650; J2270; J2405; J3010; J7030